=== PATIENT | female | born 1945 | race Caucasian/White ===

== ENCOUNTER 2017-10-30 07:18 | Day surgery (SDC) | payer OTHER, SELFPAY ==
[2017-10-30 07:54] VITALS: BP 135/76; PULSE 85; RESP 12; TEMP 36.7; O2SAT 98; BMI 42.9
[2017-10-30] MEDS: PROPARACAINE 0.5% OPHTH SOL 2 DROPS EYE-OP (08:05)
--- NOTE | 2017-10-30 08:56 | PM.PREOP ---
Pre-operative Note Interval Note Pre-op Check: History & Physical Reviewed by Physician
--- NOTE | 2017-10-30 09:05 | SUR.OPER ---
Supine on eye stretcher, head on extension cradle secured with tape. Arms tucked at sides with blanket. Pillow under knees.
[2017-10-30] MEDS: CHONDROIDTIN/SOD HYALURONATE 1.05 ML SYRINGE INTRAOCULA (09:08)
[2017-10-30] MEDS: TETRACAINE 0.5% OPHTH DROPS 15 ML 2 DROPS EYE-RIGHT (09:09)
[2017-10-30] MEDS: TRIAMCINOLONE 50 MG/5 ML VIAL INJ (09:09)
[2017-10-30] MEDS: MOXIFLOXACIN OPHTH DROPS 3 ML BOTTLE 2 DROPS INJ (09:09)
[2017-10-30] MEDS: LIDOCAINE JELLY 2% 5 ML 1 APPLIC TOP (09:10)
[2017-10-30] MEDS: BALANCED SALT IRRIG SOLN NO.2 500 ML, EPINEPHrine 1 MG IRR (09:11)
--- NOTE | 2017-10-30 09:19 | P.OP_ITS ---
Operative Date/Time/Diagnoses - Pre-op diagnosis: Cataract Right eye Post-op diagnosis: same Procedure & Clinicians Procedure: Cataract Surgery Same procedure as scheduled: Yes Surgeon: Irvin Barton Anesthesia Type: MAC +/- and Sedation Operative Notes Procedure in detail: Patient brought to the operating suite. Tetracaine drops placed in the right eye. Patient was prepped and draped in sterile manner. Wire lid speculum was placed in the eye. Betadine drops were placed on the eye. This was irrigated. Lidocaine jelly was placed on the eye. A paracentesis port was created with a side-port blade. 0.1 mL 1% preservative free lidocaine was injected into the anterior chamber. The anterior chamber was deepened with viscoelastic. 2.6 mm keratome was used to create a temporal clear corneal incision. Cystotome and Utrata forceps were used to create continuous tear capsulorrhexis. Balanced salt solution was used to hydro dissect the nucleus. The phacoemulsification handpiece was inserted and the nucleus was removed using the stop and chop technique. The irrigation aspiration handpiece was inserted and the remaining cortex was removed. Anterior chamber was deepened with viscoelastic. An Sam ZCB00 intraocular lens with a power of 21.5 was injected into the capsular bag. Irrigation aspiration handpiece was inserted and the remaining viscoelastic was removed. Incision was hydrated with balanced salt solution and found to be leak free with pressure with Weck- Sara sponges. 0.1 mL Vigamox injected anterior chamber. 0.3 mL Kenalog 10 mg was injected subconjunctivally. Lid speculum was removed. The patient left the operating room in excellent condition. Complications: none Condition: stable Disposition: same day surgery
[2017-10-30 09:21] VITALS: BP 132/75; PULSE 84; RESP 16; TEMP 36.9; O2SAT 96
[2017-10-30] MEDS: CATARACT EYE COMPOUND (10 DROPS/SYRINGE) 3 DROPS EYE-OP (09:22)
--- NOTE | 2017-10-30 09:23 | SUR.PREOP ---
ANUPAM STARTED IV
== END 2017-10-30 09:31 ==
LOC: OR 07:19
PROVIDERS: Family Provider Family Medicine; PCP Family Medicine; Visit Provider Ophthalmology
DX: H25.11 Age-related nuclear cataract, right eye (principal); E11.9 Type 2 diabetes mellitus without complications
CPT/HCPCS: J0171; J2250; J3010; J3301

== ENCOUNTER → 2020-09-17 08:02 | Outpatient (CLI) | payer MEDICARE, SELFPAY ==
--- NOTE | 2020-09-17 | DI.MRI.S_ITS ---
BREAST MRI OF BOTH BREASTS: 09/17/2020 CLINICAL: Right breast cancer. INDICATIONS: RIGHT BREAST CANCER TECHNIQUE: The patient was placed prone in a dedicated breast imaging coil. Precontrast axial STIR and 3D FLASH without fat saturation sequences were obtained. Both before and after bolus injection of contrast, sequential 1-minute axial 3D FLASH with fat saturation sequences for 3 time points, with subtraction images and maximum intensity projections (MIP's) generated. Delayed sagittal FLASH images with fat saturation were also obtained. 20 cc ProHance gadolinium based IV contrast was administered. Computer-aided detection, including computer algorithm analysis of MRI image data for lesion detection and characterization, pharmacokinetic analysis, with further physician review for interpretation, was performed. COMPARISON: [facility], , US BREAST RT CORE BIOPSY, 08/12/2020, 8:47. [facility], , US RIGHT BREAST, 08/04/2020, 10:01. [facility], , MM TOMOSYNTHESIS DIAGNOSTIC RT, 05/12/2019, 10:48. [facility], , MM TOMOSYNTHESIS SCREENING BI, 07/07/2020, 14:05. [facility], , MM TOMOSYNTHESIS DIAGNOSTIC RT, 08/04/2020, 9:34. [facility], , MM TOMOSYNTHESIS DIAGNOSTIC RT, 08/12/2020, 10:24. FINDINGS: Image quality: Excellent. There is moderate stippled and clumped background parenchymal enhancement, right greater than left. Right breast: A biopsy clip is seen in the anterior right breast closest to the 12 o'clock position. In the 11:00 o'clock anterior position immediately adjacent to the clip there is mild questionable enhancement, but not increased compared to moderate clumped and stippled background parenchymal enhancement. Kinetic analysis shows no suspicious focal enhancement in the right breast. There is a 7 mm probable intramammary lymph node in the 11:00 o'clock posterior right breast. Additionally, there is extensive bulky right level one axillary adenopathy with nodes measuring 1.6, 1.4, and 2.1 cm in short axis. There is a single tiny internal mammary chain lymph node. Left breast: Moderate stippled, clumped background parenchymal enhancement. There are few 6 mm cysts in the 12 and 01:00 o'clock mid to posterior left breast, and a few tiny fibroadenomas or intramammary lymph nodes anteriorly at the 12:00 o'clock position. Probable intramammary lymph node is present posteriorly at the 1 o'clock position. There is no suspicious enhancement above the background parenchymal enhancement. There are several borderline enlarged left axillary lymph nodes, the most cranial demonstrates eccentric cortical thickening. Miscellaneous: The visible portions of the liver, chest wall, and heart are normal. A large hiatal hernia is incidentally noted. IMPRESSION: KNOWN BIOPSY PROVEN MALIGNANCY 1. The known right breast malignant neoplasm is not well seen, potentially obscured by moderate stippled background parenchymal enhancement. 2. Small bilateral intramammary lymph nodes. 3. Extensive right level one axillary adenopathy and questionable level one left axillary adenopathy. Left axillary ultrasound and biopsy of the largest visible lymph node may be useful. BIRADS 6, known malignancy COMMENT: The imaging literature indicates that a negative contrast breast MRI examination has a high sensitivity and a moderate specificity for detecting and excluding invasive carcinomas to a detection threshold of 3-5 mm; nonetheless, appropriate clinical and mammographic follow-up are recommended. MRI is not sensitive for detecting DCIS (ductal carcinoma in situ) and may not detect large invasive neoplasms that show only minimal enhancement such as mucinous carcinoma. If there are suspicious calcifications or clinically worrisome palpable masses, then biopsy should still be considered. Invasive neoplasms can be hidden by co-existent and benign enhancement caused by mastitis, hormone therapy effects, radiation therapy, , and recent biopsy or surgery. False positive examinations can occur in a number of circumstances, including breasts that have recently been subject to invasive procedures and those that contain atypical ductal hyperplasia, hormonally stimulated glandular tissue, fat necrosis, or radial scars. Dictated by: Kala Marquez M.D. on 09/17/2020 at 17:09 This exam was interpreted at Station ID: [id number]. Electronically Signed By: Klaa levin/:09/17/2020 18:05:47 ACR BI-RADS Category 6: Known biopsy proven malignancy [id number]
== END ==
PROVIDERS: Family Provider Family Medicine; PCP Family Medicine; Referring Provider Surgery; Visit Provider Surgery
DX: C50.911 Malignant neoplasm of unspecified site of right female breast (principal); R59.0 Localized enlarged lymph nodes; N60.02 Solitary cyst of left breast
CPT/HCPCS: 77049

== ENCOUNTER → 2021-10-03 11:48 | Outpatient (CLI) | payer MEDICARE, SELFPAY ==
--- NOTE | 2021-10-03 11:50 | DI.MG.S_ITS ---
UNILATERAL LEFT DIGITAL DIAGNOSTIC MAMMOGRAM 3D/2D WITH ADDITIONAL VIEWS POST MASTECTOMY: 10/03/2021 CLINICAL: Additional evaluation requested from prior study. Comparison is made to exams dated: 08/16/2021 mammogram, 07/07/2020 mammogram - [facility], and 09/17/2020 breast MRI - [facility]. There are scattered fibroglandular elements in left breast. There is a stable 0.7 cm oval equal density asymmetry in the left breast posterior depth lateral region seen on the craniocaudal view only. No other significant masses or calcifications are seen in the breast. IMPRESSION: INCOMPLETE: NEEDS ADDITIONAL IMAGING EVALUATION The stable 0.7 cm oval equal density asymmetry in the left breast resembles fibroglandular tissue or a lymph node and is indeterminate. An ultrasound is recommended. US will be performed and dictated separately. This exam was interpreted at Station ID: [id number]. NOTE: For mammograms, a report in lay terms will be sent to the patient. Approximately 15% of breast malignancies will not be visualized mammographically. In the management of a palpable breast mass, a negative mammogram must not discourage biopsy of a clinically suspicious lesion. Electronically Signed By: Mingo Guadarrama acr/:10/03/2021 12:37:15 copy to: CHEN DENNISON ACR BI-RADS Category 0: Incomplete [id number]
--- NOTE | 2021-10-03 11:51 | DI.US.S_ITS ---
LIMITED ULTRASOUND OF LEFT BREAST AND AXILLA: 10/03/2021 CLINICAL: Additional evaluation requested from prior study. No prior exams were available for comparison. Color flow and real-time ultrasound of the left breast 2-4 o'clock, and axilla regions were performed. Mitchell scale images of the real-time examination were reviewed. There is a 0.7 cm cluster of 5 mm complex cysts in the left breast 8 o'clock position 8cm from the nipple and a normal appearing lymph node 11 cm from the nipple. IMPRESSION: PROBABLY BENIGN The 0.7 cm cluster of 5 mm complex cysts in the left breast is consistent with a complex cyst and is probably benign. A follow-up ultrasound in 6 months is recommended. This exam was interpreted at Station ID: [id number]. Electronically Signed By: Mingo Guadarrama acr/:10/03/2021 13:19:23 copy to: CHEN DENNISON letter sent: Followup Recommended Ultrasound BI-RADS: 3 Probably benign
== END ==
PROVIDERS: Family Provider Family Medicine; PCP Family Medicine; Referring Provider Internal Medicine; Visit Provider Internal Medicine
DX: R92.8 Other abnormal and inconclusive findings on diagnostic imaging of breast (principal); N60.02 Solitary cyst of left breast
CPT/HCPCS: 76642; 77065; G0279

== ENCOUNTER → 2021-10-10 10:22 | Outpatient (CLI) | payer MEDICARE, SELFPAY ==
[2021-10-10 13:08] LABS: COVID19 -Nasal RAPID Negative (Negative)
== END ==
PROVIDERS: Family Provider Family Medicine; PCP Family Medicine; Visit Provider Family Medicine Sleep Medicine
DX: Z20.822 Contact with and (suspected) exposure to COVID-19 (principal)
CPT/HCPCS: 87635; C9803

== ENCOUNTER → 2021-10-11 09:36 | Outpatient (CLI) | payer MEDICARE, SELFPAY ==
--- NOTE | 2021-10-11 | DI.NM.S_ITS ---
PROCEDURE: NM ANNABELLE PERF SPECT R&S PHARM Rest and pharmacological stress myocardial perfusion SPECT with gated imaging and ejection fraction RADIOPHARMACEUTICAL: 23.2 mCi Tc-99m tetrafosmin IV at rest and 25.9 mCi Tc-99m tetrafosmin IV at peak effect of pharmacological stress. [id number] was performed. INDICATIONS: Nonrheumatic mitral (valve) prolapse TECHNIQUE: Radiopharmaceutical was injected at peak stress test, and also at rest. SPECT images were obtained. SPECT myocardial perfusion images were displayed in short axis, horizontal long axis, and vertical long axis views. Gated images were reviewed using Accumetrics software. COMPARISON: None. CARDIAC STRESS: A pharmacologic stress test was performed under the supervision of an attending staff, using an infusion of 0.4mg IV X1. Hemodynamic data: There is normal blood pressure and heart rate response to pharmacologic stress. Symptoms: The patient denied anginal chest pain. Aminophylline: none EKG: No diagnostic changes of ischemia; no ectopy. FINDINGS: Raw data: There is good myocardial uptake of radiotracer. No significant motion artifacts. Left ventricle function: Gated images demonstrate normal left ventricular wall thickening. No segmental wall motion abnormalities. No transient ischemic dilation; TID is 0.89 (normal less than 1.3). Left ventricle resting end diastolic volume is 134 mL. Left ventricle stress ejection fraction is 64%; normal range is above 45%. Myocardial perfusion: There is normal distribution of activity in the right and left ventricular myocardium. No fixed or reversible perfusion defects. IMPRESSION: Low risk, normal pharmaceutical nuclear stress test 1) No perfusion evidence of ischemia or infarction. 2) Normal left ventricular size, wall motion, and systolic function (EF post stress 64%). 3) No ECG changes suggestive of ischemia. 4) No angina during the study. 5) No prior nuclear stress test available for comparison. Dictated by: Venu Bruner MD on 10/13/2021 at 17:16 Approved by: Venu Bruner MD on 10/13/2021 at 17:18
== END ==
PROVIDERS: Family Provider Family Medicine; PCP Family Medicine; Referring Provider Family Medicine; Visit Provider Family Medicine
DX: R06.09 Other forms of dyspnea (principal); I34.1 Nonrheumatic mitral (valve) prolapse; I10 Essential (primary) hypertension; Z92.3 Personal history of irradiation
CPT/HCPCS: 78452; 93017; A9502; J2785

== ENCOUNTER → 2024-11-24 13:36 | Outpatient (CLI) | payer MEDICARE, OTHER, SELFPAY ==
--- NOTE | 2024-11-24 13:37 | DI.ECHO.S_ITS ---
[facility] : : [address] : : [place] : : [id number] : : Phone: [phone] Echocardiogram Report + + :Name: MICHELLE MCALLISTER Study Date: 11/24/2024 Height: 62.5 in: :Hospital ReadingLocation: Weight: 224 lb : : Gender: Female BSA: 2.0 m2 : :: 1945 Age: 79 yrs BP: 119/76 mmHg: :Reason For Study: HX OF CORONARY ARTERY STENT : :Ordering Physician: MABEL, : :NENA Performed By: Constanza Mijares : :Referring: NENA MONROE : + + Interpretation Summary Normal biventricular size and systolic function. LVEF is 55 to 60%. Mildly dilated left atrium. Moderate aortic stenosis noted. (3.4m/s, MG of 26mmHg, TESSA of 0.85, DVI of 0.24). Other findings as below. No previous echo images are available for comparison. Procedure: A two-dimensional transthoracic echocardiogram with color flow and Doppler was performed. The study quality was technically adequate. There is no prior echocardiogram noted for this patient. The patient was in sinus rhythm with heart rates between 69-82 bpm during the exam. Left Ventricle: There is mild concentric left ventricular hypertrophy. The left ventricle is normal in size. The ejection fraction is estimated to be 55- 60%. Diastolic parameters suggest a pseudonormalization pattern, consistent with probable elevated filling pressures. Right Ventricle: The right ventricle is normal in size and function. Atria: The left atrium is mildly dilated. Right atrial size is normal. There is no Doppler evidence for an interatrial shunt. Mitral Valve: The mitral valve leaflets appear mildly thickened, but open well. There is mild to moderate mitral annular calcification. There is trace mitral regurgitation. Aortic Valve: The aortic valve is trileaflet. There is moderately reduced leaflet mobility. The aortic valve is mildly calcified. The peak aortic velocity is 3.4 m/sec. The aortic valve mean gradient is 26 mmHg. The calculated aortic valve area is 0.83 cm2. No aortic regurgitation is present. Tricuspid Valve: The tricuspid valve leaflets are thin and pliable. There is mild tricuspid regurgitation. The right ventricular systolic pressure is estimated to be at least 28 mmHg based on an estimated right atrial pressure of 3 mm Hg. Pulmonic Valve: The pulmonic valve is not well seen, but is grossly normal. There is no pulmonic valvular regurgitation. Great Vessels: The aortic root is normal size. The dimensions of the ascending aorta are normal. The IVC is of normal diameter and collapses greater than 50% with a sniff. This suggests a low right atrial pressure of 3 mm Hg. Pericardium/ Pleura There is no pericardial effusion. There is no pleural effusion. MMode/2D Measurements & Calculations LVIDd: 4.7 cm LVOT diam: 2.1 cm LVIDs: 3.5 cm Ao root diam: 3.5 cm FS: 26.5 % asc Aorta Diam: 3.3 cm EPSS: 0.85 cm Ao Arch Diam (Prox Trans): 2.4 cm IVSd: 1.1 cm LVPWd: 1.2 cm LV smalls. diameter/BSA (cm/m^2): 2.3 LV sys. diameter/BSA (cm/m^2): 1.7 LA A2 area: 25.0 cm2 RA long axis: 4.7 cm LA A4 area: 21.5 cm2 RA area: 16.5 cm2 LA length (vol): 6.4 cm RA vol: 49.1 ml LA vol: 70.8 ml RA : 24.3 ml/m2 LA vol index: 35.1 ml/m2 IVC diam: 1.4 cm RVD1 (basal): 3.6 cm RVD2 (mid): 3.1 cm TAPSE: 2.2 cm Doppler Measurements & Calculations Ao V2 max: 340.3 cm/sec LVOT Max Doc: 80.5 cm/sec Ao V2 mean: 236.6 cm/sec LV V1 max P.6 mmHg Ao max P.4 mmHg LV V1 VTI: 16.3 cm Ao mean P.9 mmHg TESSA(I,D): 0.85 cm2 Ao V2 VTI: 67.7 cm TESSA(V,D): 0.83 cm2 sev ratio: 0.24 TESSA indexed to BSA (cm^2/m^2): 0.42 MV E max doc: 68.2 cm/sec TR max doc: 248.1 cm/sec MV A max doc: 115.1 cm/sec TR max P.6 mmHg MV E/A: 0.59 PA V2 max: 92.8 cm/sec Med Peak E' Doc: 3.8 cm/sec PA V2 mean: 57.9 cm/sec E/E' med: 17.7 PA mean P.5 mmHg Lat Peak E' Doc: 6.9 cm/sec E/E' lat: 9.9 E/e' average: 13.8 MV dec time: 0.24 sec MVA(VTI): 1.8 cm2 MV V2 mean: 69.8 cm/sec SV(LVOT): 57.3 ml MV mean P.3 mmHg MV V2 VTI: 32.3 cm Reading Physician:03:43 PM
== END ==
PROVIDERS: Family Provider Family Medicine; PCP Nurse Practitioner Family; Referring Provider Internal Medicine Cardiovascular Disease; Visit Provider Internal Medicine Cardiovascular Disease
DX: I07.1 Rheumatic tricuspid insufficiency (principal); I50.22 Chronic systolic (congestive) heart failure; Z95.5 Presence of coronary angioplasty implant and graft
CPT/HCPCS: 93306